=== PATIENT | female | born 1975 | race American Indian/Alaskan Native ===

== ENCOUNTER 2016-08-01 18:26 | Inpatient (IN) | payer SELFPAY ==
[2016-08-01] MEDS ORDERED: CARDIZEM IV ONE ×2 (19:12→19:52)
--- NOTE | 2016-08-01 19:25 | Emergency Department Report ---
ED Palpitations HPI - General Chief Complaint: Arrhythmia/Palpitations Stated Complaint: HEART RACING/NUMBNESS Time Seen by Provider: 08/01/16 19:11 Source: patient Mode of arrival: Ambulatory Limitations: No Limitations - History of Present Illness Initial Comments: 41 year old female with a Past medical history presents to the hospital complaining of intermittent palpitations since yesterday. Symptoms worsened today. No specific aggravating or alleviating factors reported. Mild shortness of breath reported with associated lightheadedness. Patient denies chest pain, nausea, vomiting, diaphoresis, calf tenderness, edema, or recent travel. - Related Data Home Medications Medication Instructions Recorded Confirmed Last Taken No Known Home Medications [No 08/01/16 08/01/16 Unknown Reported Home Medications] Allergies Allergy/AdvReac Type Severity Reaction Status Date / Time No Known Allergies Allergy Verified 04/08/15 00:20 ED Review of Systems ROS: Stated complaint: HEART RACING/NUMBNESS Other details as noted in HPI Comment: All other systems reviewed and negative Other: Constitutional: No fevers chills Eyes: No eye pain visual changes ENT: No ear pain or throat pain Neck: Denies pain Respiratory: Denies cough wheezing Cardiovascular: As per HPI GI: Denies abdominal pain, nausea, vomiting, diarrhea : Denies dysuria Musculoskeletal: Denies back pain, joint swelling Skin: Denies rash, lesions, erythema Neurologic: Denies headache, numbness, weakness Psychiatric: Denies suicidal ideation, hallucinations ED Past Medical Hx - Past Medical History Hx Hypertension: No Hx Congestive Heart Failure: No Hx Diabetes: No Hx Asthma: No Hx COPD: No - Social History Smoking Status: Never Smoker Substance Use Type: None, Alcohol (occasional) - Medications Home Medications: Home Medications Medication Instructions Recorded Confirmed Last Taken Type No Known Home Medications [No 08/01/16 08/01/16 Unknown History Reported Home Medications] ED Physical Exam - General Limitations: No Limitations - Other Other exam information: General: No limitations, patient is alert in no acute distress Head exam: Atraumatic, normocephalic Eyes exam: Normal appearance, pupils equal reactive to light, extraocular movements intact ENT: Moist mucous membrane, normal oropharynx Neck exam: Normal inspection, full range of motion, no meningismus nontender Respiratory exam: Clear to auscultation bilateral, no wheezes, rales, crackles Cardiovascular: Tachycardic irregular rhythm Abdomen: Soft, nondistended, and nontender, with normal bowel sounds, no rebound, or guarding Extremity: Full range of motion normal inspection no deformity, no calf tenderness or edema Back: Normal Inspection, full range of motion, no tenderness Neurologic: Alert, oriented x3, cranial nerves intact, no motor or sensory deficit Psychiatric: normal affect, normal mood Skin: Warm, dry, intact ED Course Vital Signs 08/01/16 08/01/16 08/01/16 18:58 19:15 19:20 Temperature 98.5 F Pulse Rate 99 H 187 H 182 H Respiratory 18 20 Rate Blood Pressure 133/96 126/68 Blood Pressure [Left] O2 Sat by Pulse 100 100 Oximetry 08/01/16 08/01/16 08/01/16 19:30 19:35 19:59 Temperature Pulse Rate 148 H 124 H 145 H Respiratory 18 Rate Blood Pressure 132/64 137/73 Blood Pressure 131/87 [Left] O2 Sat by Pulse 10 L Oximetry - Reevaluation(s) Reevaluation #1: 08/01/16 19:24 Heart rate currently and 160 to 180s Cardizem 20 mg IV slow push ordered Reevaluation #2: 08/01/16 21:03 1 dose of Lovenox ordered for A. fib. Patient treated with diltiazem 20 that 25 mg bolus for A. fib with RVR. Heart rate reduced with close 108 and then increased again. Titrating cardiac exam upward currently increase 15. Patient appears asymptomatic and stable at this time - Consultations Consultation #1: 08/01/16 21:[address] Casey cardiology immigration associate will consult agrees with [facility] at this time ED Medical Decision Making - Lab Data Result diagrams: 08/01/16 19:35 08/01/16 19:35 Lab Results 08/01/16 08/01/16 08/01/16 Range/Units 19:35 19:35 19:35 WBC 8.6 (4.5-11.0) K/mm3 RBC 4.47 (3.65-5.03) M/mm3 Hgb 13.7 (10.1-14.3) gm/dl Hct 42.3 (30.3-42.9) % MCV 95 (79-97) fl MCH 31 (28-32) pg MCHC 33 (30-34) % RDW 17.0 H (13.2-15.2) % Plt Count 385 (140-440) K/mm3 PT 13.5 (12.2-14.9) Sec. INR 1.04 (0.87-1.13) APTT 27.5 (24.2-36.6) Sec. Sodium 138 (137-145) mmol/L Potassium 3.7 (3.6-5.0) mmol/L Chloride 102.3 (98-107) mmol/L Carbon Dioxide 21 L (22-30) mmol/L Anion Gap 18 mmol/L BUN 7 (7-17) mg/dL Creatinine 0.9 (0.7-1.2) mg/dL Estimated GFR > 60 ml/min BUN/Creatinine Ratio 7.77 % Glucose 113 H (65-100) mg/dL Calcium 9.0 (8.4-10.2) mg/dL Magnesium 1.9 (1.7-2.3) mg/dL Total Creatine Kinase 66 (30-135) units/L CK-MB (CK-2) < 1.0 (0.0-4.0) ng/mL CK-MB (CK-2) Rel Index 1.5 (0-4) Troponin T < 0.010 (0.00-0.029) ng/mL TSH (0.270-4.200) mlU/mL 08/01/16 Range/Units 19:35 WBC (4.5-11.0) K/mm3 RBC (3.65-5.03) M/mm3 Hgb (10.1-14.3) gm/dl Hct (30.3-42.9) % MCV (79-97) fl MCH (28-32) pg MCHC (30-34) % RDW (13.2-15.2) % Plt Count (140-440) K/mm3 PT (12.2-14.9) Sec. INR (0.87-1.13) APTT (24.2-36.6) Sec. Sodium (137-145) mmol/L Potassium (3.6-5.0) mmol/L Chloride (98-107) mmol/L Carbon Dioxide (22-30) mmol/L Anion Gap mmol/L BUN (7-17) mg/dL Creatinine (0.7-1.2) mg/dL Estimated GFR ml/min BUN/Creatinine Ratio % Glucose (65-100) mg/dL Calcium (8.4-10.2) mg/dL Magnesium (1.7-2.3) mg/dL Total Creatine Kinase (30-135) units/L CK-MB (CK-2) (0.0-4.0) ng/mL CK-MB (CK-2) Rel Index (0-4) Troponin T (0.00-0.029) ng/mL TSH 0.700 (0.270-4.200) mlU/mL - EKG Data -: EKG Interpreted by Me (A. fib RVR 147) - EKG Data When compared to previous EKG there are: changes noted (compared to 12/14/2014) - Medical Decision Making Patient requires admission to the hospital for A. fib with RVR currently on Cardizem drip - Differential Diagnosis thyroid disease, new onset A. fib, CAD Critical Care Time: No Critical care attestation.: If time is entered above; I have spent that time in minutes in the direct care of this critically ill patient, excluding procedure time. ED Disposition Clinical Impression: New onset atrial fibrillation, Atrial fibrillation with RVR Disposition: OP ADMITTED IP TO THIS HOSP Is pt being admited?: Yes Condition: Stable Time of Disposition: 21:04 (Dr Coe/hosp)
[2016-08-01] MEDS ORDERED: CARDIZEM/D5W 100MG/100ML 100 ML IV SCH (20:00)
[2016-08-01 20:10] LABS: Hematocrit 42.3 % (30.3-42.9); Hemoglobin 13.7 gm/dl (10.1-14.3); Mean Corpuscular HGB Conc 33 % (30-34); Mean Corpuscular Hemoglobin 31 pg (28-32); Mean Corpuscular Volume 95 fl (79-97); Platelet Count 385 K/mm3 (140-440); Red Blood Count 4.47 M/mm3 (3.65-5.03); White Blood Count 8.6 K/mm3 (4.5-11.0)
[2016-08-01 20:21] LABS: INR 1.04 (0.87-1.13); Partial Thromboplastin Time 27.5 Sec. (24.2-36.6)
[2016-08-01 20:34] LABS: Creatine Kinase MB < 1.0 ng/mL (0.0-4.0)
[2016-08-01 20:36] LABS: Anion Gap 18 mmol/L; BUN/Creatinine Ratio 7.77; Blood Urea Nitrogen 7 mg/dL (7-17); Carbon Dioxide 21 mmol/L (22-30); Chloride 102.3 mmol/L (98-107); Creatine Kinase 66 units/L (30-135); Glucose 113 mg/dL (65-100); Magnesium 1.9 mg/dL (1.7-2.3); Potassium 3.7 mmol/L (3.6-5.0); Sodium 138 mmol/L (137-145)
--- NOTE | 2016-08-01 20:39 | Admit Criteria Form ---
Admission Criteria Documentation: CARDIAC ARRHYTHMIA Clinical Indications for Inpatient Care (Place 'X' for any and all applicable criteria): Ongoing inpatient care for cardiac arrhythmia needed as indicated by ANY ONE of the following(1)(2)(3)(4)(7) : [ ]I. Vital sign abnormality secondary to arrhythmia [ ]II. Patient has implantable cardioverter-defibrillator that has fired more than once within past 24 hours or needs immediate adjustment of settings that cannot be done other than in inpatient setting. [ ]III. Altered mental status [ ]IV. Resuscitated or aborted ventricular fibrillation or ventricular tachycardia in patient without implantable cardioverter- defibrillator [ ]V. Initiation of antiarrhythmic drug therapy is needed in patient at high risk of adverse effects as indicated by ANY ONE of the following: [ ]a) Significant structural heart disease (e.g., reduced ejection fraction, congenital heart disease, valvular heart disease) [ ]b) Prolonged QT interval [ ]c) Underlying sinus node or atrioventricular conduction disturbances [ ]d) Need for treatment with antiarrhythmic drugs that have significant proarrhythmic potential (e.g., dofetilide, sotalol, procainamide) [ ]. Acute myocardial ischemia as a consequence or suspected cause of arrhythmia [ ]VII. Syncope secondary to arrhythmia [ ]VIII. Heart failure (eg, pulmonary edema) secondary to arrhythmia) (26)(27) [ ]IX. Patient has implantable cardioverter defibrillator that has fired more than once within past 24hr or needs immediate adjustment of settings that cannot be done other than in inpatient setting.(8) [ ]X. Sustained (30 seconds or more of ventricular rhythm at more than 100 beats per minute) ventricular tachycardia and ANY ONE of the following: [ ]a) No previous known history of sustained ventricular tachycardia [ ]b) Structural heart disease (eg, reduced ejection fraction, hypertrophic cardiomyopathy, severe valvular disease) and without implantable cardioverter-defibrillator(24)(32)(33) [ ]c) Need for treatment of drug toxicity (eg, digitalis toxicity)(34 ) [ ]d) Need for electrical cardioversion Extended stay beyond goal length of stay may be needed for [ ]a) Hemodynamic stability [ ]b) Arrhythmia evaluation completed [ ]c) Reversible causes of arrhythmia eliminated or mitigated [ ]d) Specific antiarrhythmia treatment initiated as appropriate [ ]e) Anticoagulation requirements addressed (or anticoagulation not required). [ ]f) Medical comorbidities manageable at lower level of care The original [facility] [employer] content created by [facility] has been revised. The portions of the content which have been revised are identified through the use of italic text or in bold, and [facility] has neither reviewed nor approved the modified material. All other unmodified content is copyright [facility]. Please see references footnoted in the original [facility] edition 2016 Admission Criteria Met: Pending
[2016-08-01] MEDS ORDERED: LOVENOX SUB-Q ONE (21:03)
--- NOTE | 2016-08-01 21:56 | History and Physical Report ---
History of Present Illness Date of examination: 08/01/16 History of present illness: 41-year-old woman with no medical problems comes emergency room with complaints of palpitations that started yesterday. Palpitation has been intermittent in nature lasting for 30 minutes. She drinks 4 caffeinated products a day. She also complaining of feeling faint and bilateral arm numbness Patient denies chest pain,, shortness of breath, cough, abdominal pain, hematochezia, dysuria, frequency, focal weakness, dysarthria, fever chills, polydipsia polyuria, hot or cold intolerance, easy bruisability, or rash or bleeding from mucosal membrane, rhinorrhea, epistaxis, earache, tinnitus, blurry vision, eye discharge, anxiety, depression. Other review of systems negative PAST SURGICAL HISTORY: None SOCIAL HISTORY: Denies alcohol, tobacco, drugs FAMILY HISTORY: Hypertension Medications and Allergies Allergies Allergy/AdvReac Type Severity Reaction Status Date / Time No Known Allergies Allergy Verified 04/08/15 00:20 Home Medications Medication Instructions Recorded Confirmed Last Taken Type No Known Home Medications [No 08/01/16 08/01/16 Unknown History Reported Home Medications] Active Meds: Active Medications Diltiazem HCl (Cardizem/D5w 100mg/100ml) 100 mls @ 5 mls/hr IV TITR TOBY; 5 MG/ HR PRN Reason: Protocol Last Titration: 08/01/16 20:52 Dose: 15 mg/hr Exam - Physical Exam Narrative exam: Gen. appearance: Patient lying in bed, no apparent distress HEENT: Normocephalic, atraumatic, pupils equally round and reactive to light, extraocular movement intact, and no sclericterus,. No JVD or thyromegaly or nodule,neck supple, no carotid bruit ,mucous membranes moist, no exudate or erythema Heart: S1, S2, irregular rate and rhythm Lungs: Clear to auscultation bilaterally, breathing comfortable Abdomen: Positive bowel sounds, nontender, nondistended, no organomegaly Extremity: No edema, cyanosis, clubbing Skin: No rash, nodules, warm, dry Neuro: Oriented 3, cranial nerves II-12 intact, speech is fluent, motor and sensory intact - Constitutional Vitals: Temp Pulse Resp BP Pulse Ox 98.5 F 145 H 18 137/73 10 L 08/01/16 18:58 08/01/16 19:59 08/01/16 19:35 08/01/16 19:59 08/01/16 19:35 Results - Labs CBC & Chem 7: 08/01/16 19:35 08/01/16 19:35 Labs: Abnormal lab results 08/01/16 08/01/16 Range/Units 19:35 19:35 RDW 17.0 H (13.2-15.2) % Carbon Dioxide 21 L (22-30) mmol/L Glucose 113 H (65-100) mg/dL Assessment and Plan New onset A. fib with RVR Admits medicine Heart rate is uncontrolled on Cardizem drip, will discontinue Cardizem drip Start labetalol drip Check cardiac enzymes, echo, consult cardiology Start full dose Lovenox, aspirin DVT prophylaxis initiated
[2016-08-01] MEDS: NORMODYNE 200 MG in D5W 160 ML IV ONE ×3 (22:48→22:49)
[2016-08-02] MEDS ORDERED: LOVENOX SUB-Q ONE (00:55)
[2016-08-02] MEDS: NORMODYNE 200 MG in D5W 160 ML IV ONE (00:56)
[2016-08-02] MEDS ORDERED: NORMODYNE 200 MG in D5W 160 ML IV ONE (01:00)
[2016-08-02] MEDS ORDERED: TYLENOL PO PRN (01:05)
[2016-08-02] MEDS ORDERED: MILK OF MAGNESIA PO PRN (01:05)
[2016-08-02] MEDS ORDERED: ALUM-MAG HYDROX-SIMETH 200-200-20MG/5ML PO PRN (01:05)
[2016-08-02] MEDS ORDERED: DULCOLAX PR PRN (01:05)
[2016-08-02] MEDS ORDERED: PERCOCET 5/325 PO PRN (01:05)
[2016-08-02] MEDS ORDERED: ZOFRAN IV PRN (01:05)
[2016-08-02 03:00] LABS: Creatine Kinase 49 units/L (30-135)
[2016-08-02] MEDS ORDERED: NORMODYNE 200 MG in D5W 160 ML IV SCH (03:00)
[2016-08-02 03:04] LABS: Creatine Kinase MB < 1.0 ng/mL (0.0-4.0)
[2016-08-02] MEDS ORDERED: LOPRESSOR PO SCH (14:00)
--- NOTE | 2016-08-02 14:29 | Consultation ---
History of Present Illness Consult date: 08/02/16 Requesting physician: VINAYAK COE Consult reason: atrial fibrillation History of present illness: The patient is a 41 year old female with a history of depression and anxiety who presented with complaints of palpitations. She states that she had several episodes of mild palpitations 2 days ago but they resolved after she took tylenol. Yesterday, she had persistent palpitations that felt more intense so she presented to the ER. No chest pain or shortness of breath. EKG showed atrial fibrillation with RVR. She converted to sinus rhythm after receiving cardizem and metoprolol in the ER. Troponin negative. Electrolytes and thyroid function are within normal limits. No previous history of atrial fibrillation. She admits to heavy caffeine intake and states that she has been under a lot of stress lately. Past History Past Medical History: other (depression, anxiety) Past Surgical History: Other (D & C) Social history: denies: smoking, alcohol abuse, prescription drug abuse, IV drug use, full code Family history: no significant family history Medications and Allergies Allergies Allergy/AdvReac Type Severity Reaction Status Date / Time No Known Allergies Allergy Verified 04/08/15 00:20 Home Medications Medication Instructions Recorded Confirmed Last Taken Type No Known Home Medications [No 08/01/16 08/01/16 Unknown History Reported Home Medications] Active Meds: Active Medications Acetaminophen (Tylenol) 650 mg PO Q6H PRN PRN Reason: Pain Al Hydrox/Mg Hydrox/Simethicone (Alum-Mag Hydrox-Simeth [id number]/5ml) 30 ml PO Q4H PRN PRN Reason: Indigestion Aspirin (Baby Aspirin) 81 mg PO QDAY TOBY Bisacodyl (Dulcolax) 10 mg SD QDAY PRN PRN Reason: constipation unrelieved by MOM Enoxaparin Sodium (Lovenox) 80 mg SUB-Q Q12H TOBY Magnesium Hydroxide (Milk Of Magnesia) 30 ml PO Q4H PRN PRN Reason: Constipation Metoprolol Tartrate (Lopressor) 50 mg PO BID TOBY Ondansetron HCl (Zofran) 4 mg IV Q8H PRN PRN Reason: N/V unrelieved by Reglan Oxycodone/Acetaminophen (Percocet 5/325) 1 tab PO Q6H PRN PRN Reason: Pain, Moderate (4-6) Review of Systems Constitutional: no fever, no chills Ears, nose, mouth and throat: no nasal congestion, no nasal discharge, no sinus pressure Cardiovascular: palpitations, no chest pain, no shortness of breath Respiratory: no cough, no congestion, no wheezing Gastrointestinal: no abdominal pain, no nausea, no vomiting, no diarrhea Genitourinary Female: no dysuria, no urgency Musculoskeletal: no neck stiffness, no neck pain, no myalgias Integumentary: no rash, no pruritis Neurological: no parathesias, no numbness, no tingling Psychiatric: anxiety Endocrine: no cold intolerance, no heat intolerance Hematologic/Lymphatic: no easy bruising, no easy bleeding Allergic/Immunologic: no urticaria, no wheezing Physical Examination Vital Signs Temp Pulse Resp BP Pulse Ox 98.5 F 99 H 18 133/96 100 08/01/16 18:58 08/01/16 18:58 08/01/16 18:58 08/01/16 18:58 08/01/16 18:58 General appearance: no acute distress HEENT: Positive: Normocephaly, Mucus Membranes Moist Neck: Positive: neck supple, trachea midline Cardiac: Positive: Reg Rate and Rhythm, S1/S2 Lungs: Positive: clear to auscultation Neuro: Positive: Grossly Intact Abdomen: Positive: Soft, Active Bowel Sounds. Negative: Tender Skin: Positive: Clear. Negative: Rash Extremities: Present: normal. Absent: edema Results 08/02/16 04:00 08/02/16 04:00 Cardiac Enzymes 08/02/16 Range/Units 01:50 CK-MB (CK-2) < 1.0 (0.0-4.0) ng/mL - Imaging and Cardiology Echo: pending EKG: image reviewed EKG interpretations - Telemetry EKG Rhythm: Sinus Rhythm - EKG Supraventricular dysrhythmia: atrial fibrillation Assessment and Plan New onset atrial fibrillation with RVR-->currently sinus rhythm electrolytes/TSH normal continue metoprolol, will decrease dose to 12.5 mg BID given low BP CHADS-VASC = 1 await echo findings The patient has been seen in conjunction with Dr. Lainez who agrees with the assessment and plan of care. Thank you Dr. Coe for allowing us to participate in the care of this patient.
--- NOTE | 2016-08-02 14:42 | Consultation ---
History of Present Illness - Reason for Consult Consult date: 08/02/16 Tachycardia, requiring IV drip for rate control - History of Present Illness 41 y/o female admitted with SVT and not controlled with IV pushes of medications so required a continuous infusion. Now rate controlled in 80's with normal BP. Mcdonough a similar episode once but was dehydrated. No structural heart disease is known. not on any rate meds outside of hospital. Is under significant stress at home. Medications and Allergies Allergies Allergy/AdvReac Type Severity Reaction Status Date / Time No Known Allergies Allergy Verified 04/08/15 00:20 Home Medications Medication Instructions Recorded Confirmed Last Taken Type No Known Home Medications [No 08/01/16 08/01/16 Unknown History Reported Home Medications] Active Meds: Active Medications Acetaminophen (Tylenol) 650 mg PO Q6H PRN PRN Reason: Pain Al Hydrox/Mg Hydrox/Simethicone (Alum-Mag Hydrox-Simeth [phone]/5ml) 30 ml PO Q4H PRN PRN Reason: Indigestion Aspirin (Baby Aspirin) 81 mg PO QDAY TOBY Bisacodyl (Dulcolax) 10 mg SD QDAY PRN PRN Reason: constipation unrelieved by MOM Enoxaparin Sodium (Lovenox) 80 mg SUB-Q Q12H TOBY Magnesium Hydroxide (Milk Of Magnesia) 30 ml PO Q4H PRN PRN Reason: Constipation Metoprolol Tartrate (Lopressor) 50 mg PO BID TOBY Ondansetron HCl (Zofran) 4 mg IV Q8H PRN PRN Reason: N/V unrelieved by Reglan Oxycodone/Acetaminophen (Percocet 5/325) 1 tab PO Q6H PRN PRN Reason: Pain, Moderate (4-6) Review of Systems All systems: negative Exam - Constitutional Vitals: Temp Pulse Resp BP Pulse Ox 98.5 F 86 16 91/59 98 08/01/16 18:58 08/02/16 10:00 08/02/16 03:09 08/02/16 03:01 08/02/16 03:09 General appearance: Present: no acute distress, well-nourished - EENT Eyes: Present: PERRL, EOM intact ENT: hearing intact, clear oral mucosa, dentition normal - Neck Neck: Present: supple, normal ROM - Respiratory Respiratory effort: normal Respiratory: bilateral: CTA - Cardiovascular Rhythm: regular Heart Sounds: Present: S1 & S2 - Extremities Extremities: no ischemia, pulses intact - Abdominal General gastrointestinal: Present: deferred, soft, non-tender, non-distended, normal bowel sounds - Rectal Rectal Exam: deferred - Integumentary Integumentary: Present: clear, warm, dry - Musculoskeletal Musculoskeletal: strength equal bilaterally - Psychiatric Psychiatric: appropriate mood/affect - Neurologic Neurologic: CNII-XII intact Results - Labs CBC & Chem 7: 08/01/16 19:35 08/01/16 19:35 Assessment and Plan 41 y/o female with SVT of unknown etiology. 1. Follow up cards recs 2. Stable for transfer out of ICU
[2016-08-02 14:49] LABS: BUN/Creatinine Ratio 7.14; Blood Urea Nitrogen 5 mg/dL (7-17); Calcium 8.4 mg/dL (8.4-10.2); Carbon Dioxide 22 mmol/L (22-30); Glucose 118 mg/dL (65-100)
[2016-08-02 14:50] LABS: Anion Gap 16 mmol/L; Chloride 103.9 mmol/L (98-107); Hematocrit 36.7 % (30.3-42.9); Hemoglobin 11.9 gm/dl (10.1-14.3); Mean Corpuscular Hemoglobin 30 pg (28-32); Mean Corpuscular Volume 94 fl (79-97); Potassium 3.9 mmol/L (3.6-5.0); Red Blood Count 3.91 M/mm3 (3.65-5.03); Sodium 138 mmol/L (137-145); White Blood Count 7.7 K/mm3 (4.5-11.0)
[2016-08-02 14:58] LABS: Basophils % (Auto) 0.4 % (0.0-1.8); Eosinophils % (Auto) 0.1 % (0.0-4.3); Mean Corpuscular HGB Conc 32 % (30-34); Mean Platelet Volume 7.8 fl (6-12); Platelet Count 358 K/mm3 (140-440); Red Cell Distribution Width 17.3 % (13.2-15.2)
[2016-08-02 19:50] LABS: Creatine Kinase 39 units/L (30-135)
[2016-08-02 19:53] LABS: Creatine Kinase MB < 1.0 ng/mL (0.0-4.0)
[2016-08-02] MEDS: LOVENOX SUB-Q SCH (22:13)
[2016-08-02] MEDS: LOPRESSOR PO SCH (22:13)
[2016-08-03] MEDS: BABY ASPIRIN PO SCH ×2 (07:51→10:14)
[2016-08-03] MEDS: LOVENOX SUB-Q SCH ×2 (07:51→10:17)
[2016-08-03] MEDS: LOPRESSOR PO SCH (10:14)
[2016-08-03 10:19] VITALS: BP 109/59
--- NOTE | 2016-08-03 10:25 | Progress Note ---
Assessment and Plan New onset atrial fibrillation with RVR-->currently sinus rhythm electrolytes/TSH normal continue metoprolol 12.5 mg BID CHADS-VASC = 1 await echo findings Continue current management. Await echo findings. The patient has been seen in conjunction with Dr. Lainez who agrees with the assessment and plan of care. Subjective Date of service: 08/03/16 Principal diagnosis: new onset afib Interval history: The patient is resting in bed. No new complaints. Sinus rhythm on the monitor. Objective Last Vital Signs Temp 97.9 F 08/03/16 04:40 Pulse 91 H 08/03/16 10:17 Resp 20 08/03/16 04:40 BP 109/59 08/03/16 10:17 Pulse Ox 97 08/03/16 07:46 - Physical Examination General: No Apparent Distress HEENT: Positive: Normocephaly, Mucus Membranes Moist Neck: Positive: neck supple, trachea midline Cardiac: Positive: Reg Rate and Rhythm, S1/S2 Lungs: Positive: clear to auscultation Neuro: Positive: Grossly Intact Abdomen: Positive: Soft, Active Bowel Sounds. Negative: Tender Skin: Positive: Clear. Negative: Rash Extremities: Present: normal. Absent: edema - Labs and Meds Cardiac Enzymes 08/02/16 Range/Units 16:21 CK-MB (CK-2) < 1.0 (0.0-4.0) ng/mL CBC 08/02/16 Range/Units 04:00 WBC 7.7 (4.5-11.0) K/mm3 RBC 3.91 (3.65-5.03) M/mm3 Hgb 11.9 (10.1-14.3) gm/dl Hct 36.7 (30.3-42.9) % Plt Count 358 (140-440) K/mm3 Lymph # 2.5 (1.2-5.4) K/mm3 [place] # 0.5 (0.0-0.8) K/mm3 Eos # 0.0 (0.0-0.4) K/mm3 Baso # 0.0 (0.0-0.1) K/mm3 Comprehensive Metabolic Panel 08/02/16 Range/Units 04:00 Sodium 138 (137-145) mmol/L Potassium 3.9 (3.6-5.0) mmol/L Chloride 103.9 (98-107) mmol/L Carbon Dioxide 22 (22-30) mmol/L BUN 5 L (7-17) mg/dL Creatinine 0.7 (0.7-1.2) mg/dL Glucose 118 H (65-100) mg/dL Calcium 8.4 (8.4-10.2) mg/dL - Imaging and Cardiology EKG: image reviewed Echo: pending - Telemetry EKG Rhythm: Sinus Rhythm
--- NOTE | 2016-08-03 10:59 | Discharge Summary ---
Providers - Providers Date of Admission: 08/01/16 21:05 Date of discharge: 08/03/16 Attending physician: KATHRYN BOWMAN 08/01/16 21:24 Consult to Physician [CONS] Urgent Consulting Provider: HALIE CASEY Reason For Exam: afib rvr, new onset Place consult to:: Dr. Etelvina Casey Notified:: Answering Service Phone number called:: [phone] Was contact made?: Yes If yes, spoke with:: Dr. Etelvina Casey Time called:: 21:22 Comment:: Dr. Hickman (er drLeanne) spoke to Dr. Etelvina Casey Primary care physician: BRIAR WOOD SORTER Hospitalization Condition: Good Disposition: DISCHARGED TO HOME OR SELFCARE - Discharge Diagnoses (1) Atrial fibrillation with RVR Status: Acute (2) New onset atrial fibrillation Status: Acute Core Measure Documentation - Palliative Care Palliative Care/ Comfort Measures: Not Applicable Exam - Constitutional Vitals: Temp Pulse Resp BP Pulse Ox 97.9 F 91 H 20 109/59 97 08/03/16 04:40 08/03/16 10:17 08/03/16 04:40 08/03/16 10:17 08/03/16 07:46 Plan Activity: advance as tolerated Diet: low fat, low cholesterol, low salt Additional Instructions: 1.Follow with PCP or [facility] in 1 week. 2. Follow up with: PRIMARY CARE, [Primary Care Provider] - 7 Days Prescriptions: Metoprolol [Lopressor TAB] 12.5 mg PO BID #60 tablet
== END 2016-08-03 13:17 | disposition home or self-care (01) | DRG 310 ==
LOC: ED 18:26 → CC1 21:05 → 4A 08-02 22:00
PROVIDERS: ADMIT Internal Medicine; ATTEND Internal Medicine
DX: I48.91 Unspecified atrial fibrillation (principal); F41.9 Anxiety disorder, unspecified; F32.9 Major depressive disorder, single episode, unspecified; I47.1 Supraventricular tachycardia; Z82.49 Family history of ischemic heart disease and other diseases of the circulatory system
CPT/HCPCS: 36415; 80048; 82550; 82553; 83735; 84439; 84443; 84484; 85025; 85027; 85610; 85730; 93005; 93010; 93306; 96372; 96374; 96375; 96376; J1650

== ENCOUNTER 2017-07-13 10:43 | Emergency (ER) | payer SELFPAY ==
[2017-07-13 11:38] LABS: Basophils % (Auto) 0.8 % (0.0-1.8); Eosinophils % (Auto) 0.7 % (0.0-4.3); Hematocrit 38.7 % (30.3-42.9); Hemoglobin 12.5 gm/dl (10.1-14.3); Lymphocytes # (Auto) 2.4 K/mm3 (1.2-5.4); Lymphocytes % (Auto) 41.1 % (13.4-35.0); Mean Corpuscular HGB Conc 32 % (30-34); Mean Corpuscular Hemoglobin 31 pg (28-32); Mean Corpuscular Volume 96 fl (79-97); Monocytes # (Auto) 0.4 K/mm3 (0.0-0.8); Monocytes % (Auto) 6.3 % (0.0-7.3); Platelet Count 349 K/mm3 (140-440); Red Blood Count 4.05 M/mm3 (3.65-5.03); Red Cell Distribution Width 15.6 % (13.2-15.2)
[2017-07-13 11:56] LABS: Alanine Aminotransferase 8 units/L (7-56); Albumin 3.9 g/dL (3.9-5); BUN/Creatinine Ratio 7; Blood Urea Nitrogen 5 mg/dL (7-17); Hemolysis Index 21
[2017-07-13 11:58] LABS: Bilirubin,Direct < 0.2 mg/dL (0-0.2)
[2017-07-13 12:10] LABS: Bacteria,Urine 2+ /HPF (Negative); Bilirubin,Urine NEG (Negative); Blood,Urine MOD (Negative); Color,Urine Yellow (Yellow); Mucus,Urine 1+ /HPF; Nitrite,Urine POS (Negative); Protein,Urine <15 mg/dL mg/dL (Negative)
[2017-07-13 12:11] LABS: HCG Qualitative,Urine Negative (Negative)
[2017-07-13 22:38] VITALS: BP 149/84
--- NOTE | 2017-07-13 23:54 | Emergency Department Report ---
ED General Adult HPI - General Chief complaint: Abdominal Pain Stated complaint: NUMBNESS IN LEFT ARM Time Seen by Provider: 07/13/17 22:36 Source: patient Mode of arrival: Ambulatory Limitations: No Limitations - History of Present Illness Initial comments: Patient with multiple complaints. Thinks arm on the left went numb earlier today now back to normal. also had some anxiety and thinks she needs something for her nerves, also thinks she has uti, no fever, no n/v no back pain, no vag c/o, no abd c/o, numbness is gone now, started after she woke up from sleep , into l hand and fingers, no motor c/o, no visual c/o, no speech c/o, no cp no other c/o -: unknown Location: left, upper extremity Severity scale (0 -10): 0 Associated Symptoms: denies other symptoms. denies: confusion, chest pain, cough, diaphoresis, fever/chills, headaches, loss of appetite, malaise, nausea/ vomiting, rash, seizure, shortness of breath, syncope, weakness - Related Data Previous Rx's Medication Instructions Recorded Last Taken Type Cephalexin [Keflex] 500 mg PO Q6HR 7 Days capsule 07/13/17 Unknown Rx Allergies Allergy/AdvReac Type Severity Reaction Status Date / Time No Known Allergies Allergy Verified 04/08/15 00:20 ED Review of Systems ROS: Stated complaint: NUMBNESS IN LEFT ARM Other details as noted in HPI Comment: All other systems reviewed and negative Constitutional: denies: diaphoresis, fever, malaise, weakness Respiratory: denies: shortness of breath, SOB with exertion, SOB at rest, stridor, wheezing Cardiovascular: denies: chest pain, palpitations, dyspnea on exertion, orthopnea , edema, syncope, paroxysmal nocturnal dyspnea Gastrointestinal: denies: abdominal pain, nausea, vomiting, diarrhea, constipation, hematemesis, melena, hematochezia Genitourinary: urgency, dysuria, frequency. denies: hematuria, discharge, abnormal menses Skin: denies: change in color Neurological: denies: headache, weakness, numbness, paresthesias, confusion, abnormal gait, vertigo Psychiatric: anxiety. denies: auditory hallucinations, visual hallucinations, homicidal thoughts, suicidal thoughts ED Past Medical Hx - Past Medical History Hx Hypertension: No Hx Congestive Heart Failure: No Hx Diabetes: No Hx Asthma: No Hx COPD: No Additional medical history: Anxiety, depression - Social History Smoking Status: Never Smoker Substance Use Type: None - Medications Home Medications: Home Medications Medication Instructions Recorded Confirmed Last Taken Type Cephalexin [Keflex] 500 mg PO Q6HR 7 Days capsule 07/13/17 Unknown Rx ED Physical Exam - General Limitations: No Limitations General appearance: alert, in no apparent distress, anxious - Head Head exam: Present: atraumatic, normocephalic - Eye Eye exam: Present: PERRL, EOMI - ENT ENT exam: Present: normal exam, normal orophraynx, mucous membranes moist - Neck Neck exam: Present: normal inspection, full ROM. Absent: tenderness, meningismus, lymphadenopathy, thyromegaly - Respiratory Respiratory exam: Present: normal lung sounds bilaterally. Absent: respiratory distress, wheezes, rales, rhonchi, stridor, chest wall tenderness, accessory muscle use, decreased breath sounds, prolonged expiratory - Cardiovascular Cardiovascular Exam: Present: regular rate, normal rhythm, normal heart sounds. Absent: bradycardia, tachycardia, irregular rhythm, systolic murmur, diastolic murmur, rubs, gallop - GI/Abdominal GI/Abdominal exam: Present: soft. Absent: distended, tenderness, guarding, rebound, mass, bruit, pulsatile mass - Extremities Exam Extremities exam: Present: normal inspection, full ROM, normal capillary refill. Absent: tenderness, pedal edema, joint swelling, calf tenderness - Back Exam Back exam: Present: normal inspection. Absent: CVA tenderness (L), muscle spasm , paraspinal tenderness, vertebral tenderness - Neurological Exam Neurological exam: Present: alert, oriented X3, CN II-XII intact, normal gait, other (sensory normal throughout). Absent: motor sensory deficit - Psychiatric Psychiatric exam: Present: normal affect, anxious. Absent: depressed, agitated , homicidal ideation, suicidal ideation ED Course Vital Signs 07/13/17 07/13/17 07/13/17 10:53 22:36 22:38 Temperature 98.1 F 98.2 F Pulse Rate 119 H 88 Respiratory 18 18 18 Rate Blood Pressure 170/75 Blood Pressure 149/84 [Left] O2 Sat by Pulse 100 100 100 Oximetry - Reevaluation(s) Reevaluation #1: 07/13/17 23:55 Laboratory studies ordered at triage for abdominal pain ED Medical Decision Making - Lab Data Result diagrams: 07/13/17 11:17 07/13/17 11:17 - Medical Decision Making UA is positive for UTI. She is not cc chemistry unremarkable patient without acute abdomen at this time stable for outpatient follow-up numbness is resolved no evidence of focal neuro lesion at this time, no central neuro findings, nl cerebellar exam and gait, stable otuot/ f/u Critical care attestation.: If time is entered above; I have spent that time in minutes in the direct care of this critically ill patient, excluding procedure time. ED Disposition Clinical Impression: Numbness and tingling in left upper extremity, UTI (urinary tract infection) Disposition: TO HOME OR SELFCARE Is pt being admited?: No Condition: Stable Instructions: Abdominal Pain (ED), Paresthesia (ED), Urinary Tract Infection in Women (ED) Prescriptions: Cephalexin [Keflex] 500 mg PO Q6HR 7 Days capsule Referrals: AMADOU SO MD [Staff Physician] - 3-5 Days Time of Disposition: 00:00
== END 2017-07-14 00:11 | disposition home or self-care (01) ==
LOC: ED 10:43
DX: R20.0 Anesthesia of skin (principal); N39.0 Urinary tract infection, site not specified; F41.9 Anxiety disorder, unspecified; F32.9 Major depressive disorder, single episode, unspecified
CPT/HCPCS: 36415; 80048; 80074; 81001; 81025; 85025; 99283